=== PATIENT | female | born 1955 | race Caucasian/White ===

== ENCOUNTER 2018-11-15 06:28 | Day surgery (SDC) | payer OTHER | END 2018-11-15 11:20 | disposition home or self-care (01) | LOC: AMB-ENDOS 06:28 | DX: K62.5 Hemorrhage of anus and rectum (principal); K64.8 Other hemorrhoids ==

== ENCOUNTER 2019-01-09 14:00 | Emergency (ER) | payer OTHER ==
[~2019-01-09] VITALS: Ht 152.4 cm; Wt 79.8 kg
== END 2019-01-09 16:00 | disposition home or self-care (01) ==
LOC: ER 14:00
DX: M54.5 Low back pain (principal)

== ENCOUNTER 2024-03-10 09:33 | Emergency (ER) | payer OTHER ==
[~2024-03-10] VITALS: Ht 152.4 cm; Wt 78.9 kg
[2024-03-10] MEDS ORDERED: LEVOTHYROXINE25 MCG (10:25)
[2024-03-10] MEDS ORDERED: COZAAR25 MG PO (10:25)
[2024-03-10] MEDS ORDERED: DEXAMETHASONE SODIUM PHOSPHATE 4 MG/ML VIAL IM STA (11:26)
[2024-03-10] MEDS ORDERED: TRAMADOL HCL 50 MG TABLET PO STA (11:27)
[2024-03-10] MEDS ORDERED: ORPHENADRINE CITRATE 30 MG/ML AMPUL IM STA (11:28)
== END 2024-03-10 12:55 | disposition home or self-care (01) ==
LOC: ER 09:35
DX: M51.26 Other intervertebral disc displacement, lumbar region (principal); M25.551 Pain in right hip; I10 Essential (primary) hypertension; E03.8 Other specified hypothyroidism; Z88.1 Allergy status to other antibiotic agents; Z88.6 Allergy status to analgesic agent
CPT/HCPCS: 72100; 73501; 96372; 99283; J1100; J2360

== ENCOUNTER 2024-07-13 05:17 | Emergency (ER) | payer OTHER ==
[~2024-07-13] VITALS: Ht 152.4 cm; Wt 78.9 kg
[~2024-07-13 05:17] MED LIST: COZAAR25 MG PO; LEVOTHYROXINE25 MCG
[2024-07-13] MEDS ORDERED: SYNTHROID75 MCG PO (05:31)
[2024-07-13] MEDS ORDERED: GABAPENTIN300 M2 (05:31)
[2024-07-13] MEDS ORDERED: ALPRAZOLAM2 MG PO (05:31)
[2024-07-13] MEDS ORDERED: KETOROLAC TROMETHAMINE 30 MG VIAL IM STA (08:20)
[2024-07-13] MEDS ORDERED: METHYLPREDNISOLONE SOD SUCC 40 MG VIAL IM STA (08:20)
[2024-07-13] MEDS ORDERED: FAMOtidine 10 MG/ML (4ML VIAL) IV STA (08:21)
[2024-07-13 08:57] LABS: HEMATOCRIT 40.1 % (36.0-45.00); HEMOGLOBIN 13.7 g/dL (12.0-15.00); MEAN CELL VOLUME 92.2 fL (80.00-100.00); MEAN CORPUSCULAR HEMOGLOBIN 31.5 pg (27.00-32.0); MEAN CORPUSCULAR HGB CONC 34.1 g/dl (32.0-36.0); PLATELET COUNT 259 K/uL (150-450); RED BLOOD COUNT 4.35 M/uL (4.00-6.00); RED CELL DISTRIBUTION WIDTH 13.8 % (11.5-14.5)
[2024-07-13 09:05] LABS: ERYTHROCYTE SEDIMENTATION RATE 69 mm/hr
[2024-07-13] MEDS ORDERED: CYCLOBENZAPRINE5 MG PO (09:45)
[2024-07-13] MEDS ORDERED: DICLOFENAC POTA50 MG PO (09:45)
[2024-07-13] MEDS ORDERED: PEPCID AC20 MG PO (09:45)
[2024-07-13] MEDS ORDERED: MEDROLPACK PO (09:45)
== END 2024-07-13 10:29 | disposition home or self-care (01) ==
LOC: ER 05:19
PROVIDERS: General Practice
DX: M25.522 Pain in left elbow (principal); E03.8 Other specified hypothyroidism; I10 Essential (primary) hypertension; F32.89 Other specified depressive episodes; M79.7 Fibromyalgia
CPT/HCPCS: 36415; 73070; 96365; 96372; 99283; J1885; J3490